=== PATIENT | female | born 1995 | race Caucasian/White ===

== ENCOUNTER 2018-06-28 08:33 | Day surgery (SDC) | payer OTHER ==
[2018-06-24 10:36] LABS: Basophils # (auto) 0 uL; Basophils % (auto) 0.4 % (0.0-2.0); Eosinophils # (auto) 0.1 uL; Eosinophils % (auto) 1.4 % (0.0-7.0); Hematocrit 38.8 % (36.0-46.0); Hemoglobin 13.6 g/dL (12.2-16.2); Lymphocytes # (auto) 1.1 uL; Lymphocytes % (auto) 20.6 % (10.0-50.0); Mean Corpuscular Hemoglobin 31.9 pg (28.0-32.0); Mean Corpuscular Volume 91.3 fL (80.0-100.0); Monocytes # (auto) 0.3 uL; Monocytes % (auto) 6.5 % (0.0-12.0); Neutrophils # (auto) 3.8 uL; Neutrophils % (auto) 71.1 % (37.0-80.0); Platelet Count (auto) 232 10^3/uL (140-450); Red Blood Cells 4.25 10^6/uL (4.0-5.20); Red Cell Distribution Width 13.1 % (11.8-14.3); White Blood Cell 5.3 10^3/uL (4.4-10.8)
[2018-06-24 10:49] LABS: INR 0.94 (0.9-1.15); Partial Thromboplastin Time 30.3 sec (23.78-33.04); Prothrombin Time 10.1 sec (9.27-12.13)
[~2018-06-28] VITALS: Ht 168.9 cm; Wt 106.6 kg
[2018-06-28] MEDS ORDERED: SODIUM CHLORIDE LOCK 10 ML ONE (09:22)
[2018-06-28] MEDS ORDERED: diphenhdrAMINE HCL 50 MG/1 ML VL ONE (09:24)
[2018-06-28] MEDS: MIDAZOLAM HCL 5 MG/ML-1ML VIAL ONE ×3 (09:51→10:01)
[2018-06-28] MEDS: fentaNYL CITRATE 100 MCG/2 ML VL ONE ×3 (09:51→10:01)
== END 2018-06-28 10:49 | disposition home or self-care (01) ==
LOC: GI 08:33
PROVIDERS: ATTEND Internal Medicine Gastroenterology
DX: K59.00 Constipation, unspecified (principal); E66.9 Obesity, unspecified; Z68.37 Body mass index [BMI] 37.0-37.9, adult; Z91.02 Food additives allergy status
CPT/HCPCS: 45378; J1200; J3010; J7030; 36415; 84702; 85025; 85610; 85730; J2250

== ENCOUNTER 2023-03-06 20:01 | Emergency (ER) | payer OTHER ==
[~2023-03-06] VITALS: Ht 170.2 cm; Wt 123.9 kg
[2023-03-06] MEDS ORDERED: HYDROcodone-ACET 10/325MG TAB PO ONE (20:30)
[2023-03-06 20:55] LABS: Urine Bacteria NONE SEEN /hpf (None Seen); Urine Blood Negative /uL (Negative); Urine Specific Gravity 1.024 (1.001-1.035); Urine WBC 10 /hpf (0 - 5)
[2023-03-06 21:46] LABS: Basophils # (auto) 0.1 10 ^3/uL (0-0.2); Eosinophils # (auto) 0.1 10 ^3/uL (0-0.8); Eosinophils % (auto) 1.2 % (0.0-7.0); Hematocrit 37.6 % (36.0-46.0); Hemoglobin 12.9 g/dL (12.2-16.2); Lymphocytes # (auto) 1.9 10 ^3/uL (0.4-5.4); Lymphocytes % (auto) 20.4 % (10.0-50.0); Mean Corpuscular Hemoglobin 30.9 pg (28.0-32.0); Mean Corpuscular Hgb Conc. 34.3 g/dL (32.0-36.0); Mean Corpuscular Volume 90.1 fL (80.0-100.0); Monocytes # (auto) 0.6 10 ^3/uL (0-1.3); Monocytes % (auto) 5.9 % (0.0-12.0); Neutrophils # (auto) 6.8 10 ^3/uL (1.6-8.6); Neutrophils % (auto) 71.5 % (37.0-80.0); Nucleated Red Blood Cells % 0.1 %; Red Blood Cells 4.17 10^6/uL (4.0-5.20); Red Cell Distribution Width 13.2 % (11.8-14.3); White Blood Cell 9.5 10^3/uL (4.4-10.8)
[2023-03-06 22:05] LABS: Calcium 9.5 mg/dL (8.5-10.1); Potassium 3.6 mmol/L (3.5-5.1)
[2023-03-06 22:09] LABS: BUN/Creatinine Ratio 13.8 (10.0-20.0); Bilirubin, Total 0.6 mg/dL (0.2-1.0); Total Protein 7.9 g/dL (6.4-8.2)
[2023-03-06] MEDS ORDERED: IBUP800T26 PO (22:44)
[2023-03-06] MEDS ORDERED: NITR-87 PO (22:44)
[2023-03-06 23:55] VITALS: BP 139/88
== END 2023-03-07 00:01 | disposition home or self-care (01) ==
LOC: ER 20:01
DX: N39.0 Urinary tract infection, site not specified (principal)
CPT/HCPCS: 36415; 74176; 80053; 81001; 81025; 83690; 85025